=== PATIENT | male | born 1985 | race Caucasian/White ===

== ENCOUNTER 2018-12-14 12:26 | Emergency (ER) | payer SELFPAY, OTHER, MEDICAID ==
[2018-12-14] MEDS: LIDOCAINE 1% (MPF) 5 ML VIAL INJ (13:11)
== END 2018-12-14 14:09 | disposition home or self-care (01) ==
LOC: FTE 12:26
DX: S01.111A Laceration without foreign body of right eyelid and periocular area, initial encounter (principal); W22.8XXA Striking against or struck by other objects, initial encounter; Y92.89 Other specified places as the place of occurrence of the external cause
CPT/HCPCS: 12011; 99282-25